=== PATIENT | female | born 1975 | race Caucasian/White ===

== ENCOUNTER → 2025-01-03 15:30 | Outpatient (BNVA) | payer SELFPAY | PROVIDERS: Visit Provider Thoracic Surgery (Cardiothoracic Vascular Surgery) | DX: L97.222 Non-pressure chronic ulcer of left calf with fat layer exposed (principal) | CPT/HCPCS: 87070; 87176; 87205 ==

== ENCOUNTER → 2025-01-31 10:15 | Outpatient (BNVA) | payer SELFPAY | PROVIDERS: Visit Provider Thoracic Surgery (Cardiothoracic Vascular Surgery) | DX: L97.922 Non-pressure chronic ulcer of unspecified part of left lower leg with fat layer exposed (principal) | CPT/HCPCS: 87070 ==